=== PATIENT | female | born 1950 | race Caucasian/White ===

== ENCOUNTER 2021-04-11 14:25 | Day surgery (SDC) | payer MEDICARE, OTHER ==
[2021-04-11] MEDS ORDERED: Sodium Chloride 0.9(Preservative Free) 10 ML IJ ONE (14:26)
[2021-04-11] MEDS ORDERED: Xylocaine 1% Vial 30 ML PF IJ ONE (14:26)
[2021-04-11] MEDS ORDERED: Depo-Medrol 40 MG/ML IM ONE (14:26)
--- NOTE | 2021-04-11 17:40 | XRAY ---
36 seconds fluoroscopy time in surgery for lumbar ISABEL.
== END 2021-04-11 16:53 | disposition home or self-care (01) ==
LOC: SDC-PAIN 14:25
PROVIDERS: ATTEND Psychiatry & Neurology Pain Medicine
DX: M54.16 Radiculopathy, lumbar region (principal); M19.90 Unspecified osteoarthritis, unspecified site; K57.92 Diverticulitis of intestine, part unspecified, without perforation or abscess without bleeding; Z79.899 Other long term (current) drug therapy; R73.03 Prediabetes
CPT/HCPCS: 62323; 72100; 77003; 82947; J1030; J2001; Q9966

== ENCOUNTER 2021-05-23 15:02 | Day surgery (SDC) | payer MEDICARE, OTHER ==
[2021-05-23] MEDS ORDERED: LIDOCAINE HCL 2% 100 MG/5 ML IJ ONE (15:03)
[2021-05-23] MEDS ORDERED: Depo-Medrol 40 MG/ML IM ONE (15:03)
[2021-05-23] MEDS ORDERED: Lactated Ringers 1,000 ML IV ONE (15:13)
[2021-05-23] MEDS ORDERED: DIPRIVAN 200 MG/20 ML IV ONE (16:15)
--- NOTE | 2021-05-24 11:45 | XRAY ---
21 seconds fluoroscopy time in surgery for bilateral L4-S1 MBB.
== END 2021-05-23 16:50 | disposition home or self-care (01) ==
LOC: SDC-PAIN 15:02
PROVIDERS: ATTEND Psychiatry & Neurology Pain Medicine
DX: M47.816 Spondylosis without myelopathy or radiculopathy, lumbar region (principal); M19.90 Unspecified osteoarthritis, unspecified site; K57.92 Diverticulitis of intestine, part unspecified, without perforation or abscess without bleeding; Z79.899 Other long term (current) drug therapy
CPT/HCPCS: 64493; 64494; 72020; 77002; J1030; J2704

== ENCOUNTER 2021-08-01 09:50 | Day surgery (SDC) | payer MEDICARE, OTHER ==
[2021-08-01] MEDS ORDERED: BUPIVACAINE 0.5% VIAL IJ ONE (09:51)
[2021-08-01] MEDS ORDERED: Depo-Medrol 40 MG/ML IM ONE (09:51)
[2021-08-01] MEDS ORDERED: Xylocaine 1% Vial 30 ML PF IJ ONE (09:51)
[2021-08-01] MEDS ORDERED: Lactated Ringers 1,000 ML IV ONE ×2 (11:24→16:39)
[2021-08-01] MEDS ORDERED: DIPRIVAN 200 MG/20 ML IV ONE (12:15)
--- NOTE | 2021-08-01 13:48 | XRAY ---
Indication: Bilateral L4-S1 MBB. Intraoperative fluoroscopy provided for 8 seconds. Single digital spot image submitted for interpretation demonstrates posterior needle tips projecting over the expected left and right L4-S1 nerve roots. Correlate with intraoperative findings/report.
--- NOTE | 2021-08-01 14:06 | XRAY ---
8 seconds fluoroscopy time in surgery for bilateral L4-S1 MBB.
== END 2021-08-01 12:50 | disposition home or self-care (01) ==
LOC: SDC-PAIN 09:50
PROVIDERS: ATTEND Psychiatry & Neurology Pain Medicine
DX: M47.816 Spondylosis without myelopathy or radiculopathy, lumbar region (principal); Z79.899 Other long term (current) drug therapy
CPT/HCPCS: 64493; 64494; 72020; 77002; J1030; J2001; J2704

== ENCOUNTER 2021-08-15 11:37 | Day surgery (SDC) | payer MEDICARE, OTHER ==
[2021-08-15] MEDS ORDERED: BUPIVACAINE 0.5% VIAL IJ ONE (11:38)
[2021-08-15] MEDS ORDERED: Xylocaine 1% Vial 30 ML PF IJ ONE (11:38)
[2021-08-15] MEDS ORDERED: Depo-Medrol 40 MG/ML IM ONE (11:38)
[2021-08-15] MEDS ORDERED: DIPRIVAN 200 MG/20 ML IV ONE (12:38)
[2021-08-15] MEDS ORDERED: Lactated Ringers 1,000 ML IV ONE (13:39)
--- NOTE | 2021-08-15 13:55 | XRAY ---
Indication: Left L4-S1 RFA. Intraoperative fluoroscopy provided for 30 seconds. 3 digital spot images submitted for interpretation demonstrates posterior needle tips projecting over the expected left L4-S1 nerve roots. Correlate with intraoperative findings/report.
--- NOTE | 2021-08-15 13:57 | XRAY ---
30 seconds fluoroscopy time in surgery for left L4-S1 RFA.
== END 2021-08-15 13:10 | disposition home or self-care (01) ==
LOC: SDC-PAIN 11:37
PROVIDERS: ATTEND Psychiatry & Neurology Pain Medicine
DX: M47.816 Spondylosis without myelopathy or radiculopathy, lumbar region (principal); Z79.899 Other long term (current) drug therapy
CPT/HCPCS: 64635; 64636; 72100; 77002; J1030; J2001; J2704

== ENCOUNTER 2021-08-22 13:45 | Day surgery (SDC) | payer MEDICARE, OTHER ==
[2021-08-22] MEDS ORDERED: BUPIVACAINE 0.5% VIAL IJ ONE (13:46)
[2021-08-22] MEDS ORDERED: Depo-Medrol 40 MG/ML IM ONE (13:46)
[2021-08-22] MEDS ORDERED: Xylocaine 1% Vial 30 ML PF IJ ONE (13:46)
[2021-08-22] MEDS ORDERED: DIPRIVAN 200 MG/20 ML IV ONE (15:57)
[2021-08-22] MEDS ORDERED: Lactated Ringers 1,000 ML IV ONE (16:17)
--- NOTE | 2021-08-23 11:20 | XRAY ---
31 seconds fluoroscopy time in surgery for right L4-S1 RFA.
--- NOTE | 2021-08-25 23:09 | XRAY ---
Indication: Right L4-S1 RFA. Intraoperative fluoroscopy was provided for 31 seconds. 3 digital spot images submitted for interpretation demonstrate posterior needle tips projected over the expected course of the right L4-S1 nerve roots. Correlate with intraoperative findings/report.
== END 2021-08-22 16:19 | disposition home or self-care (01) ==
LOC: SDC-PAIN 13:45
PROVIDERS: ATTEND Psychiatry & Neurology Pain Medicine
DX: M47.816 Spondylosis without myelopathy or radiculopathy, lumbar region (principal); Z79.899 Other long term (current) drug therapy
CPT/HCPCS: 64635; 64636; 72100; 77002; J1030; J2001; J2704

== ENCOUNTER 2021-09-26 10:33 | Day surgery (SDC) | payer MEDICARE, OTHER ==
[2021-09-26] MEDS ORDERED: BUPIVACAINE 0.5% VIAL IJ ONE (10:34)
[2021-09-26] MEDS ORDERED: Depo-Medrol 40 MG/ML IM ONE (10:34)
[2021-09-26] MEDS ORDERED: DIPRIVAN 200 MG/20 ML IV ONE (12:21)
--- NOTE | 2021-09-26 13:29 | XRAY ---
Indication: Bilateral SI joint injection. Intraoperative fluoroscopy provided for 27 seconds. 4 digital spot images submitted for interpretation demonstrates posterior needle tip projecting over the inferior left and right SI joint. Correlate with intraoperative findings/report.
--- NOTE | 2021-09-26 13:29 | XRAY ---
Indication: Bilateral greater trochanter injections. Intraoperative fluoroscopy provided for 19 seconds. 2 digital spot images submitted for interpretation demonstrates needle tip projecting lateral to the left and right greater trochanters. Small amount of contrast injected for both needle tip placement. Correlate with intraoperative findings/report.
--- NOTE | 2021-09-26 13:38 | XRAY ---
27 seconds fluoroscopy time in surgery for bilateral injections of the SI joints.
--- NOTE | 2021-09-26 13:48 | XRAY ---
19 seconds fluoroscopy time in surgery for bilateral greater trochanter injections of the hips.
[2021-09-26] MEDS ORDERED: Lactated Ringers 1,000 ML IV ONE (17:26)
== END 2021-09-26 12:49 | disposition home or self-care (01) ==
LOC: SDC-PAIN 10:33
PROVIDERS: ATTEND Psychiatry & Neurology Pain Medicine
DX: M46.1 Sacroiliitis, not elsewhere classified (principal); M70.62 Trochanteric bursitis, left hip; M70.61 Trochanteric bursitis, right hip; I51.9 Heart disease, unspecified; K57.92 Diverticulitis of intestine, part unspecified, without perforation or abscess without bleeding; Z79.899 Other long term (current) drug therapy
CPT/HCPCS: 20610; 27096; 72202; 73521; 77002; G0260; J1030; J2704; Q9966

== ENCOUNTER 2021-10-10 08:31 | Day surgery (SDC) | payer MEDICARE ==
[2021-10-10] MEDS ORDERED: BUPIVACAINE 0.5% VIAL IJ ONE (08:32)
[2021-10-10] MEDS ORDERED: Depo-Medrol 40 MG/ML IM ONE (08:32)
[2021-10-10] MEDS ORDERED: Lactated Ringers 1,000 ML IV ONE (10:44)
[2021-10-10] MEDS ORDERED: DIPRIVAN 200 MG/20 ML IV ONE (11:12)
--- NOTE | 2021-10-10 13:00 | XRAY ---
Indication: Right hip injection. Intraoperative fluoroscopy provided for 16 seconds. Single digital spot image submitted for interpretation demonstrates needle tip projecting lateral to the right femur neck. Small amount of contrast injected for needle tip placement. Correlate with intraoperative findings/report.
--- NOTE | 2021-10-10 13:21 | XRAY ---
16 seconds fluoroscopy time in surgery for intra-articular injection of the right hip.
== END 2021-10-10 11:35 | disposition home or self-care (01) ==
LOC: SDC-PAIN 08:31
PROVIDERS: ATTEND Psychiatry & Neurology Pain Medicine
DX: M16.11 Unilateral primary osteoarthritis, right hip (principal); D64.9 Anemia, unspecified; I51.9 Heart disease, unspecified; K57.92 Diverticulitis of intestine, part unspecified, without perforation or abscess without bleeding; Z79.899 Other long term (current) drug therapy
CPT/HCPCS: 20610; 73501; 77002; J1030; J2704; Q9966

== ENCOUNTER 2022-05-29 11:41 | Day surgery (SDC) | payer MEDICARE ==
[2022-05-29] MEDS ORDERED: Marcaine Mpf 0.5% Vial 30 Ml IJ ONE (11:42)
[2022-05-29] MEDS ORDERED: Depo-Medrol 40 MG/ML IM ONE (11:42)
[2022-05-29] MEDS ORDERED: DIPRIVAN 200 MG/20 ML IV ONE (12:31)
[2022-05-29] MEDS ORDERED: Lactated Ringers 1,000 ML IV ONE (14:28)
--- NOTE | 2022-05-30 18:32 | XRAY ---
22 seconds fluoroscopy time in surgery for injections of both SI joints.
--- NOTE | 2022-05-31 20:48 | XRAY ---
Indication: Bilateral SI joint injection. Intraoperative fluoroscopy provided for 22 seconds. 4 digital spot images submitted for interpretation demonstrates posterior needle tips projecting over the inferior right and left SI joints. Correlate with intraoperative findings/report.
== END 2022-05-29 12:55 | disposition home or self-care (01) ==
LOC: SDC-PAIN 11:41
PROVIDERS: ATTEND Psychiatry & Neurology Pain Medicine
DX: M46.1 Sacroiliitis, not elsewhere classified (principal); Z79.899 Other long term (current) drug therapy
CPT/HCPCS: 27096; 72202; 77002; G0260; J1030; J2704

== ENCOUNTER 2023-01-01 11:35 | Day surgery (SDC) | payer MEDICARE ==
[2023-01-01] MEDS ORDERED: BUPIVACAINE 0.5% VIAL IJ ONE (11:36)
[2023-01-01] MEDS ORDERED: Depo-Medrol 40 MG/ML IM ONE (11:36)
[2023-01-01] MEDS ORDERED: LIDOCAINE HCL 1% 50 MG/5 ML VL PF IJ ONE (11:36)
[2023-01-01] MEDS ORDERED: DIPRIVAN 200 MG/20 ML IV ONE (12:46)
--- NOTE | 2023-01-01 13:37 | XRAY ---
Indication: Right L4-S1 RFA. Intraoperative fluoroscopy provided for 36 seconds. 3 digital spot images submitted for interpretation demonstrates posterior needle tips projecting over the expected right L4-S1 nerve roots. Correlate with intraoperative findings/report.
--- NOTE | 2023-01-01 13:37 | XRAY ---
36 seconds of fluoroscopy was used in surgery for a right L4-S1 RFA.
[2023-01-01] MEDS ORDERED: Lactated Ringers 1,000 ML IV ONE (14:04)
== END 2023-01-01 13:25 | disposition home or self-care (01) ==
LOC: SDC-PAIN 11:35
PROVIDERS: ATTEND Psychiatry & Neurology Pain Medicine
DX: M47.816 Spondylosis without myelopathy or radiculopathy, lumbar region (principal); Z79.899 Other long term (current) drug therapy
CPT/HCPCS: 64635; 64636; 72100; 77002; 82947; J1030; J2001; J2704

== ENCOUNTER 2023-01-08 11:18 | Day surgery (SDC) | payer MEDICARE ==
[2023-01-08] MEDS ORDERED: BUPIVACAINE 0.5% VIAL IJ ONE (11:19)
[2023-01-08] MEDS ORDERED: Lactated Ringers 1,000 ML IV ONE (11:19)
[2023-01-08] MEDS ORDERED: LIDOCAINE HCL 1% 50 MG/5 ML VL PF IJ ONE (11:19)
[2023-01-08] MEDS ORDERED: Depo-Medrol 40 MG/ML IM ONE (11:19)
[2023-01-08] MEDS ORDERED: DIPRIVAN 200 MG/20 ML IV ONE (14:10)
--- NOTE | 2023-01-08 15:15 | XRAY ---
Indication: Left L4-S1 RFA. Intraoperative fluoroscopy provided for 24 seconds. 3 digital spot images submitted for interpretation demonstrates posterior needle tips projecting over the expected left L4-S1 nerve roots. Correlate with intraoperative findings/report.
--- NOTE | 2023-01-08 15:17 | XRAY ---
24 seconds of fluoroscopy was used in surgery for a left L4-S1 RFA.
== END 2023-01-08 14:40 | disposition home or self-care (01) ==
LOC: SDC-PAIN 11:18
PROVIDERS: ATTEND Psychiatry & Neurology Pain Medicine
DX: M47.816 Spondylosis without myelopathy or radiculopathy, lumbar region (principal); Z79.899 Other long term (current) drug therapy
CPT/HCPCS: 64635; 64636; 72100; 77002; 82947; J1030; J2001; J2704

== ENCOUNTER 2023-09-18 07:06 | Day surgery (SDC) | payer MEDICARE ==
[2023-09-18] MEDS ORDERED: Depo-Medrol 40 MG/ML IM ONE (07:07)
[2023-09-18] MEDS ORDERED: BUPIVACAINE 0.5% VIAL IJ ONE (07:07)
[2023-09-18] MEDS ORDERED: Versed 2 MG/2 ML Injection ONE (08:36)
[2023-09-18] MEDS ORDERED: DIPRIVAN 200 MG/20 ML IV ONE (08:36)
[2023-09-18] MEDS ORDERED: Lactated Ringers 1,000 ML IV ONE (09:16)
--- NOTE | 2023-09-18 10:58 | XRAY ---
Indication: Bilateral SI joint injection. Intraoperative fluoroscopy provided for 17 seconds. 5 digital spot images submitted for interpretation demonstrates posterior needle tip projecting over the left and right SI joint. Correlate with intraoperative findings/report.
--- NOTE | 2023-09-18 12:32 | XRAY ---
17 seconds of fluoroscopy was used in surgery for a bilateral sacroiliac joint injection.
== END 2023-09-18 09:06 | disposition home or self-care (01) ==
LOC: SDC-PAIN 07:06
PROVIDERS: ATTEND Psychiatry & Neurology Pain Medicine
DX: M46.1 Sacroiliitis, not elsewhere classified (principal); R73.03 Prediabetes
CPT/HCPCS: 27096; 72202; 77002; 82947; G0260; J1030; J2250; J2704

== ENCOUNTER 2024-01-21 14:03 | Day surgery (SDC) | payer MEDICARE ==
[2024-01-21] MEDS ORDERED: Depo-Medrol 40 MG/ML IM ONE (14:04)
[2024-01-21] MEDS ORDERED: XYLOCAINE-MPF 1% 5ML SDV IJ ONE (14:04)
[2024-01-21] MEDS ORDERED: BUPIVACAINE 0.5% VIAL IJ ONE (14:04)
--- NOTE | 2024-01-21 20:16 | XRAY ---
Indication: Right shoulder and subacromial bursa injection. Intraoperative fluoroscopy provided for 21 seconds. 2 digital spot image submitted for interpretation demonstrates needle tip projecting over the right glenohumeral joint superiorly. Second needle tip subacromial. Small amount of contrast injected for needle tip placement. Correlate with intraoperative findings/report.
--- NOTE | 2024-01-22 12:03 | XRAY ---
21 seconds of fluoroscopy was used in surgery for a right intra-articular shoulder and subacromial bursa injection.
== END 2024-01-21 16:58 | disposition home or self-care (01) ==
LOC: SDC-PAIN 14:03
PROVIDERS: ATTEND Psychiatry & Neurology Pain Medicine
DX: M19.011 Primary osteoarthritis, right shoulder (principal); M75.51 Bursitis of right shoulder; E11.9 Type 2 diabetes mellitus without complications
CPT/HCPCS: 20610; 73030; 77002; 82947; J1030; Q9966

== ENCOUNTER 2024-02-18 15:39 | Day surgery (SDC) | payer MEDICARE ==
[2024-02-18] MEDS ORDERED: BUPIVACAINE 0.5% VIAL IJ ONE (15:40)
[2024-02-18] MEDS ORDERED: LIDOCAINE HCL 1% 50 MG/5 ML VL PF IJ ONE (15:40)
[2024-02-18] MEDS ORDERED: Depo-Medrol 40 MG/ML IM ONE (15:40)
--- NOTE | 2024-02-18 18:37 | XRAY ---
Indication: Right greater trochanter bursa injection. Intraoperative fluoroscopy provided for 20 seconds. Single digital spot image submitted for interpretation demonstrates needle tip projecting lateral to right greater trochanter. Small amount of contrast injected for needle tip placement. Correlate with intraoperative findings/report.
--- NOTE | 2024-02-19 12:45 | XRAY ---
20 seconds of fluoroscopy was used in surgery for a right greater trochanteric bursa injection.
== END 2024-02-18 17:30 | disposition home or self-care (01) ==
LOC: SDC-PAIN 15:39
PROVIDERS: ATTEND Psychiatry & Neurology Pain Medicine
DX: M70.61 Trochanteric bursitis, right hip (principal); E11.9 Type 2 diabetes mellitus without complications
CPT/HCPCS: 20610; 73501; 77002; 82947; J1030; J2001; Q9966

== ENCOUNTER 2024-06-02 07:48 | Day surgery (SDC) | payer MEDICARE ==
[2024-06-02] MEDS ORDERED: BUPIVACAINE 0.5% VIAL IJ ONE (07:49)
[2024-06-02] MEDS ORDERED: Depo-Medrol 40 MG/ML IM ONE (07:49)
[2024-06-02] MEDS ORDERED: Lactated Ringers 1,000 ML IV ONE (09:27)
[2024-06-02] MEDS ORDERED: DIPRIVAN 200 MG/20 ML IV ONE (09:55)
--- NOTE | 2024-06-02 11:16 | XRAY ---
Indication: Right hip and greater trochanter bursa injection. Intraoperative fluoroscopy provided for 19 seconds. 2 digital spot image submitted for interpretation demonstrates needle tips projecting lateral to right femur neck and right greater trochanter. Small amount of contrast injected for both needle tip placement. Correlate with intraoperative findings/report.
--- NOTE | 2024-06-02 12:22 | XRAY ---
19 seconds of fluoroscopy was used in surgery for a right intra-articular hip and greater trochanteric bursa injection.
== END 2024-06-02 10:25 | disposition home or self-care (01) ==
LOC: SDC-PAIN 07:48
PROVIDERS: ATTEND Psychiatry & Neurology Pain Medicine
DX: M70.61 Trochanteric bursitis, right hip (principal); M16.11 Unilateral primary osteoarthritis, right hip; E11.9 Type 2 diabetes mellitus without complications
CPT/HCPCS: 20610; 73502; 77002; 82947; J2704; Q9966

== ENCOUNTER 2024-12-08 14:38 | Day surgery (SDC) | payer MEDICARE ==
[2024-12-08] MEDS ORDERED: BUPIVACAINE 0.5% VIAL IJ ONE (14:39)
[2024-12-08] MEDS ORDERED: LIDOCAINE HCL 1% 50 MG/5 ML VL PF IJ ONE (14:39)
[2024-12-08] MEDS ORDERED: Depo-Medrol 40 MG/ML IM ONE (14:39)
--- NOTE | 2024-12-08 19:56 | XRAY ---
30 seconds of fluoroscopy used in surgery for a right intra-articular shoulder injection and right subacromial bursa injection.
--- NOTE | 2024-12-08 19:57 | XRAY ---
Indication: Right shoulder and subacromial bursa injection. Intraoperative fluoroscopy provided for 30 seconds. For digital spot images submitted for interpretation demonstrates needle tip projecting over right glenohumeral joint superiorly. Second needle tip subacromial. Small amount of contrast injected for needle tip placement. Correlate with intraoperative findings/report.
== END 2024-12-08 17:18 ==
LOC: SDC-PAIN 14:38
PROVIDERS: ATTEND Psychiatry & Neurology Pain Medicine
DX: M19.011 Primary osteoarthritis, right shoulder (principal); M75.51 Bursitis of right shoulder; R73.03 Prediabetes
CPT/HCPCS: 20610; 73030; 77002; 82947; J2001; Q9966

== ENCOUNTER 2025-01-13 11:33 | Day surgery (SDC) | payer MEDICARE ==
[2025-01-13] MEDS ORDERED: LIDOCAINE HCL 1% AMPUL 5 ML IJ ONE (11:34)
[2025-01-13] MEDS ORDERED: Depo-Medrol 40 MG/ML IM ONE (11:34)
[2025-01-13] MEDS ORDERED: BUPIVACAINE 0.5% VIAL IJ ONE (11:34)
[2025-01-13] MEDS ORDERED: Lactated Ringers 500 ML IV ONE (12:30)
[2025-01-13] MEDS ORDERED: propofoL IV ONE (13:43)
--- NOTE | 2025-01-13 15:00 | XRAY ---
Indication: Right L4-S1 RFA. Intraoperative fluoroscopy provided for 21 seconds. 4 digital spot image submitted for interpretation demonstrates posterior needle tips projecting over expected right L4-S1 nerve roots. Correlate with intraoperative findings/report.
--- NOTE | 2025-01-13 15:01 | XRAY ---
21 seconds of fluoroscopy was used in surgery for a right L4-S1 RFA.
== END 2025-01-13 14:10 | disposition home or self-care (01) ==
LOC: SDC-PAIN 11:33
PROVIDERS: ATTEND Psychiatry & Neurology Pain Medicine
DX: M47.816 Spondylosis without myelopathy or radiculopathy, lumbar region (principal); R73.03 Prediabetes
CPT/HCPCS: 64635; 64636; 72100; 77002; 82947; 99100; J2704

== ENCOUNTER 2025-01-19 11:51 | Day surgery (SDC) | payer MEDICARE ==
[~2025-01-19 11:51] MED LIST: Lactated Ringers 500 ML IV ONE
[2025-01-19] MEDS ORDERED: methylPREDNISolone acetate IM ONE (11:52)
[2025-01-19] MEDS ORDERED: BUPIVACAINE 0.5% VIAL IJ ONE (11:52)
[2025-01-19] MEDS ORDERED: LIDOCAINE HCL 1% AMPUL 5 ML IJ ONE (11:52)
[2025-01-19] MEDS ORDERED: propofoL IV ONE (13:09)
--- NOTE | 2025-01-19 14:19 | XRAY ---
Indication: Left L4-S1 RFA. Intraoperative fluoroscopy provided for 23 seconds. 7 digital spot images submitted for interpretation demonstrates posterior needle tips project over expected left L4-S1 nerve roots. Correlate with intraoperative findings/report.
--- NOTE | 2025-01-19 14:57 | XRAY ---
23 seconds of fluoroscopy was used in surgery for a left L4-S1 RFA.
== END 2025-01-19 13:44 | disposition home or self-care (01) ==
LOC: SDC-PAIN 11:51
PROVIDERS: ATTEND Psychiatry & Neurology Pain Medicine
DX: M47.817 Spondylosis without myelopathy or radiculopathy, lumbosacral region (principal); R73.03 Prediabetes
CPT/HCPCS: 64635; 64636; 72100; 77002; 82947; 99100; J1010; J2704